=== PATIENT | male | born 1980 | race Caucasian/White ===

== ENCOUNTER 2016-07-27 18:23 | Emergency (ER) | payer BC, MEDICAID ==
[2016-07-27] MEDS ORDERED: HYDROcodone/ACETAMIN 5-325 MG* 1 TAB PO ONE (20:39)
[2016-07-27] MEDS ORDERED: Ibuprofen TAB* 600 MG PO ONE (20:39)
[2016-07-27] MEDS ORDERED: Penicillin VK TAB* 250 MG PO ONE (20:39)
--- NOTE | 2016-07-27 20:46 | UC ---
Dental HPI - HPI Summary HPI Summary: R lower dental pain starting a few days ago, steadily worsening since. Pt did not come in to be seen b/c he had an apt with an oral surgeon today (referred by dentist). Went to apt but was not seen by provider, so did not get any prescriptions. Was hoping for an antibiotic. - History of Current Complaint Chief Complaint: UCDentalProblem Stated Complaint: TOOTH PAIN Time Seen by Provider: 07/27/16 20:32 Hx Obtained From: Patient Onset/Duration: Gradual Onset, Lasting Days Aggravating: Chewing - Allergies/Home Medications Allergies/Adverse Reactions: Allergies Allergy/AdvReac Type Severity Reaction Status Date / Time No Known Allergies Allergy Verified 07/09/12 14:39 PMH/Surg Hx/FS Hx/Imm Hx Endocrine History Of: Denies: Diabetes, Thyroid Disease Cardiovascular History Of: Denies: Cardiac Disorders, Hypertension Respiratory History Of: Denies: COPD, Asthma GI/ History Of: Denies: Ulcer - Surgical History Surgical History: Yes Surgery Procedure, Year, and Place: 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 10 upper teeth removed 2006 - Family History Known Family History: Positive: Hypertension - Social History Lives: With Family Alcohol Use: Occasionally Substance Use Type: None Smoking Status (MU): Heavy Every Day Tobacco Smoker Length of Time of Smoking/Using Tobacco: 24 - Immunization History Most Recent Influenza Vaccination: denies Review of Systems Constitutional: Negative Skin: Negative Eyes: Negative ENT: Dental Pain Respiratory: Negative Cardiovascular: Negative Gastrointestinal: Negative Genitourinary: Negative Motor: Negative Neurovascular: Negative Musculoskeletal: Negative Neurological: Negative Psychological: Negative All Other Systems Reviewed And Are Negative: Yes Physical Exam Triage Information Reviewed: Yes Appearance: Obese Vital Signs: Initial Vital Signs Temp 98.7 F 07/27/16 19:44 Pulse 85 07/27/16 19:44 Resp 18 07/27/16 19:44 BP 175/105 07/27/16 19:44 Pulse Ox 100 07/27/16 19:44 Vital Signs Reviewed: Yes Eye Exam: Normal Eyes: Positive: Conjunctiva Clear Dental Exam: Other - upper dentures, most rear lower teeth gone or decayed Dental: Positive: Percussion Tenderness @ - #27, Gross Decay/Caries @ - multiple Neck exam: Normal Neck: Positive: Supple, No Lymphadenopathy Respiratory Exam: Normal Respiratory: Positive: Chest non-tender, Lungs clear, Normal breath sounds, No respiratory distress, No accessory muscle use Cardiovascular Exam: Normal Cardiovascular: Positive: RRR, No Murmur Musculoskeletal Exam: Normal Neurological Exam: Normal Neurological: Positive: Alert Psychological Exam: Normal Skin Exam: Normal Dental Complaint Course/Dx - Differential Dx/Diagnosis Provider Diagnoses: Toothache #27 Discharge - Discharge Plan Condition: Stable Disposition: HOME Prescriptions: Indomethacin CAP* [Indocin CAP*] 50 mg PO TID PRN #30 cap PRN Reason: Pain Penicillin VK TAB 500 MG(NF) [Penicillin VK 500 mg Tab(NF)] 500 mg PO QID #28 tab traMADol TAB* [Ultram*] 50 mg PO Q6HR PRN #15 tab MDD 4 PRN Reason: Pain Patient Education Materials: Toothache (ED) Referrals: Deshawn Enciso MD [Primary Care Provider] - 2 Weeks Additional Instructions: Please follow up with your oral surgeon as instructed. If you have severe symptoms, fever, or new swelling, please return here for care. See your primary care provider for your elevated blood pressure.
[2016-07-27 20:48] VITALS: BP 178/103
== END 2016-07-27 20:49 | disposition home or self-care (01) ==
LOC: UCEAST 18:23
DX: K08.89 Other specified disorders of teeth and supporting structures (principal); F17.210 Nicotine dependence, cigarettes, uncomplicated
CPT/HCPCS: 99213; A9270-GY; G0463

== ENCOUNTER 2016-08-02 16:12 | Emergency (ER) | payer BC, MEDICAID ==
[2016-08-02 18:39] VITALS: BP 167/108
--- NOTE | 2016-08-02 19:01 | UC ---
Dental HPI - HPI Summary HPI Summary: Seen here 07/27/16 for R lower tooth pain, rx PCN, indocin, and ultram #15. States pain is tolerable with indocin and ultram together, but just took the last one and does not yet have an appointment with the oral surgeon for extraction. Is waiting for a call. Was told they cannot make apt at PCP for dental pain. - History of Current Complaint Chief Complaint: UCGeneralIllness Stated Complaint: TOOTH PAIN Time Seen by Provider: 08/02/16 18:44 Hx Obtained From: Patient Onset/Duration: Gradual Onset, Lasting Weeks Severity: Moderate Aggravating: Chewing Alleviating: OTC Meds - Allergies/Home Medications Allergies/Adverse Reactions: Allergies Allergy/AdvReac Type Severity Reaction Status Date / Time No Known Allergies Allergy Verified 08/02/16 18:29 PMH/Surg Hx/FS Hx/Imm Hx Endocrine History Of: Denies: Diabetes, Thyroid Disease Cardiovascular History Of: Denies: Cardiac Disorders, Hypertension Respiratory History Of: Denies: COPD, Asthma GI/ History Of: Denies: Ulcer - Surgical History Surgical History: Yes Surgery Procedure, Year, and Place: 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 10 upper teeth removed 2006 - Family History Known Family History: Positive: Hypertension - Social History Lives: With Family Alcohol Use: Occasionally Substance Use Type: None Smoking Status (MU): Heavy Every Day Tobacco Smoker Amount Used/How Often: 1 pack/ day Length of Time of Smoking/Using Tobacco: 24 - Immunization History Most Recent Influenza Vaccination: denies Review of Systems Constitutional: Negative Skin: Negative Eyes: Negative ENT: Dental Pain Respiratory: Negative Cardiovascular: Negative Gastrointestinal: Negative Genitourinary: Negative Motor: Negative Neurovascular: Negative Musculoskeletal: Negative Neurological: Negative Psychological: Negative All Other Systems Reviewed And Are Negative: Yes Physical Exam Triage Information Reviewed: Yes Appearance: Well-Appearing, No Pain Distress, Well-Nourished Vital Signs: Initial Vital Signs Temp 98.4 F 08/02/16 18:30 Pulse 67 08/02/16 18:30 Resp 20 08/02/16 18:30 BP 167/108 08/02/16 18:30 Pulse Ox 100 08/02/16 18:30 Vital Signs Reviewed: Yes Eye Exam: Normal Eyes: Positive: Conjunctiva Clear ENT Exam: Normal ENT: Positive: Normal ENT inspection, Hearing grossly normal, Pharynx normal, TMs normal. Negative: Tonsillar swelling, Tonsillar exudate Dental Exam: Other - upper edentulous Dental: Positive: Percussion Tenderness @ - spaces where lower R molars would be , Gross Decay/Caries @ Neck exam: Normal Respiratory Exam: Normal Respiratory: Positive: Chest non-tender, Lungs clear, Normal breath sounds, No respiratory distress, No accessory muscle use Cardiovascular Exam: Normal Cardiovascular: Positive: RRR, No Murmur Musculoskeletal Exam: Normal Neurological Exam: Normal Neurological: Positive: Alert Psychological Exam: Normal Skin Exam: Normal Dental Complaint Course/Dx - Differential Dx/Diagnosis Provider Diagnoses: Dental pain R lower gums Discharge - Discharge Plan Condition: Stable Disposition: HOME Prescriptions: Lidocaine 2% VISCOUS* 3 ml TOPICAL Q2H #1 btl traMADol TAB* [Ultram*] 50 mg PO Q6HR PRN #15 tab MDD 4 PRN Reason: Pain Patient Education Materials: Toothache (ED) Referrals: Deshawn Enciso MD [Primary Care Provider] - 3 Days Additional Instructions: Please see your primary care provider about your blood pressure. You can also ask for some short-term support for pain medication; please do not come back to urgent care for pain pills.
== END 2016-08-02 19:05 | disposition home or self-care (01) ==
LOC: UCEAST 16:12
DX: K08.89 Other specified disorders of teeth and supporting structures (principal); F17.210 Nicotine dependence, cigarettes, uncomplicated
CPT/HCPCS: 99212; G0463

== ENCOUNTER 2017-11-12 18:48 | Emergency (ER) | payer BC, MEDICAID ==
[2017-11-12 18:57] VITALS: BP 153/103
--- NOTE | 2017-11-12 19:22 | UC ---
Shoulder Pain HPI - HPI Summary HPI Summary: The patient is a 37-year-old male with the onset of left shoulder pain about 1: 00 today. He is right-hand dominant. The pain is located in the anterior proximal humerus. There hurts to abduction the arm. He also has pain when he externally rotates the shoulder. There is no neck pain. He has no numbness or tingling. He denies any trauma. He has no chest pain or shortness of breath. - History of Current Complaint Chief Complaint: UCUpperExtremity Stated Complaint: L SHOULDER PAIN Time Seen by Provider: 11/12/17 18:59 Hx Obtained From: Patient Onset/Duration: Sudden Onset Timing: Constant Severity Initially: Severe Severity Currently: Severe Location Of Pain: Is Discrete @ Pain Intensity: 8 Pain Scale Used: 0-10 Numeric Character: Aching, Throbbing Aggravating Factor(s): Movement, External Rotation, Abduction Alleviating Factor(s): OTC Meds Associated Signs And Symptoms: Positive: Negative Related History: Dominant Hand Right - Allergies/Home Medications Allergies/Adverse Reactions: Allergies Allergy/AdvReac Type Severity Reaction Status Date / Time No Known Allergies Allergy Verified 11/12/17 18:57 Home Medications: Home Medications Ibuprofen TAB* [Motrin TAB* 800 MG] 1 tab PO DAILY 11/12/17 [History Confirmed 11/12/17] PMH/Surg Hx/FS Hx/Imm Hx Previously Healthy: Yes - Surgical History Surgical History: Yes Surgery Procedure, Year, and Place: tumor benign on right leg 2005. 10 upper teeth removed 2006 - Family History Known Family History: Positive: Cardiac Disease, Hypertension, Diabetes - Social History Alcohol Use: Occasionally Substance Use Type: None Smoking Status (MU): Heavy Every Day Tobacco Smoker Amount Used/How Often: 1 pack/ day Length of Time of Smoking/Using Tobacco: 24 - Immunization History Most Recent Influenza Vaccination: denies Review of Systems Constitutional: Negative Skin: Negative Eyes: Negative ENT: Negative Respiratory: Negative Cardiovascular: Negative Gastrointestinal: Negative Genitourinary: Negative Motor: Negative Neurovascular: Negative Musculoskeletal: Arthralgia Neurological: Negative Psychological: Negative Is Patient Immunocompromised?: No All Other Systems Reviewed And Are Negative: Yes Physical Exam Triage Information Reviewed: Yes Appearance: Well-Appearing, No Pain Distress, Well-Nourished Vital Signs: Initial Vital Signs Temp 98.1 F 11/12/17 18:54 Pulse 82 11/12/17 18:54 Resp 18 11/12/17 18:54 BP 153/103 11/12/17 18:54 Pulse Ox 99 11/12/17 18:54 Vital Signs Reviewed: Yes Eyes: Positive: Conjunctiva Clear ENT: Positive: Hearing grossly normal. Negative: Nasal congestion, Nasal drainage, Trismus, Muffled voice, Hoarse voice Neck: Positive: Supple, Nontender Respiratory: Positive: Lungs clear, Normal breath sounds, No respiratory distress, No accessory muscle use Cardiovascular: Positive: RRR, No Murmur Musculoskeletal: Positive: No Edema, ROM Limited @ - right shoulder-15 degrees abduction, limited ext rotation/tender bicipital groove Neurological: Positive: Alert Psychological Exam: Normal Skin Exam: Normal Diagnostics - Radiology No standard instances Xray Interpretation: Positive (See Comments) - FINDINGS SUGGESTIVE OF CALCIFIC TENDINITIS OR BURSITIS Radiology Interpretation Completed By: Radiologist Shoulder Course/Dx - Differential Dx/Diagnosis Provider Diagnoses: calcific tendonitis left shoulder. elevate BP without diagnosis of HTN Discharge - Sign-Out/Discharge Documenting (check all that apply): Patient Departure - Discharge Plan Condition: Stable Disposition: HOME Prescriptions: Ibuprofen TAB* [Motrin TAB*] 600 mg PO Q6H PRN #40 tab PRN Reason: Pain Patient Education Materials: Calcific Tendinitis (ED) Referrals: [facility] [Outside] - 1 Week (recheck in 1-2 weks if not better) Deshawn Enciso MD [Primary Care Provider] - 2 Weeks (BP recheck in 2-8 weeks) Additional Instructions: sling at work as needed for comfort heat Range of motion exercises as discussed massage yuri Berry Disposition and Condition Condition: STABLE Disposition: Home
--- NOTE | 2017-11-12 19:38 | RAD ---
INDICATION: Left shoulder injury. TECHNIQUE: 4 views of the left shoulder were obtained. FINDINGS: The bones are in normal alignment. No fracture is seen. There are calcific deposits adjacent to the superolateral aspect of the humeral head. Joint spaces appear maintained. IMPRESSION: FINDINGS SUGGESTIVE OF CALCIFIC TENDINITIS OR BURSITIS.
== END 2017-11-12 20:02 | disposition home or self-care (01) ==
LOC: UCEAST 18:48
DX: M75.32 Calcific tendinitis of left shoulder (principal); R03.0 Elevated blood-pressure reading, without diagnosis of hypertension; Z82.49 Family history of ischemic heart disease and other diseases of the circulatory system; Z83.3 Family history of diabetes mellitus; F17.210 Nicotine dependence, cigarettes, uncomplicated
CPT/HCPCS: 99213; G0463

== ENCOUNTER 2019-04-20 16:12 | Emergency (ER) | payer BC, MEDICAID ==
[2019-04-20] MEDS ORDERED: EPINEPHrine SYR 0.1MG/ML* SYRINGE ONE (16:14)
[2019-04-20] MEDS ORDERED: Naloxone* 0.4 MG/ML 10 ML VIAL ONE (16:18)
[2019-04-20] MEDS ORDERED: Sodium Bicarbonate 8.4%* 50 ML SYRINGE ONE (16:22)
--- NOTE | 2019-04-20 16:32 | ED ---
Cardiac Resuscitation - HPI Summary HPI Summary: Patient is a 38 y/o M presenting to [facility] via EMS for a chief complaint of cardiac arrest. Per EMS, patient was complaining of chest pain when he suddenly had a syncopal episode which was witnessed by his family. EMS was called at 15: 22 and on EMS arrival, patient was unconsciousness, was covered in vomit, and had a palpable pulse for 4 minutes before being in asystole. Patient was started on cardiac resuscitation and intubated. No PMHx, PSHx, or FMHx was noted by the family to EMS as the family was distraught and crying. - History of Current Complaint Stated Complaint: CARDIAC ARREST PER EMS Hx Obtained From: EMS Hx From Patient Unobtainable Due To: Extremis - Cardiac arrest Arrest Witnessed: Yes - Allergies/Home Medications Allergies/Adverse Reactions: Allergies Allergy/AdvReac Type Severity Reaction Status Date / Time No Known Allergies Allergy Verified 11/12/17 18:57 - Past Medical History Past Medical History: Unobtainable Due to Extremis - Family History Family History: Unobtainable Due to Extremis - Social History Social History: Unobtainable Due to Extremis - Review of Systems Review of Systems: Unobtainable Due to Extremis Physical Examination - Summary Physical Exam Summary: Vital Signs Reviewed: Yes CPR in progress with an ET tube placed. Vomitus around the airway and on the neck Eyes: Pupils are fixed and nonreactive to light ENT: ET tube in place with easy bagging by RT Neck: No crepitus Respiratory: Bilateral breath sounds present no chest wall crepitus Cardiovascular: Asystole on the monitor abd soft no obvious distention Musculoskeletal Exam: No evidence of trauma or swelling Neurological: Pupils fixed and nonreactive Skin: no rash, no ecchymosis - Physical Examination Triage Information Reviewed: Yes Completion Of Physical Exam Limited Due To: Extremis Resuscitation Termination Time: 16:27 Resuscitation: Unsuccessful Procedures - Sedation Patient Received Moderate/Deep Sedation with Procedure: No Cardiac Resus. Course/Dx - Course Course Of Treatment: Patient is here after having a witnessed cardiac arrest at home. Patient is complaining of pain her girlfriend in his chest and then collapsed. By the time EMS arrived, patient was covered in vomitus and found to be asystole on the monitor. CPR was initiated. Patient received 3 rounds of epinephrine prior to arrival. Patient was successfully intubated by the paramedics who saw the tube pass through the cords. Patient was easily bagged by RT and had bilateral breath sounds. Patient received multiple rounds of CPR , epinephrine, one amp of bicarbonate, 2 mg of Narcan here in the ED. Patient continued to be in asystole. Patient was pronounced at 1627. Patient was accepted by the medical assistant dermatology. - Diagnoses Provider Diagnoses: Cardiac arrest, Respiratory arrest During the Visit The Following Alert/Code Occurred: ABC Alert - ETA 5 MINUTES AT 16:03 CALLED ON EMS. EMS ARRIVAL AT 16:08. AT 16:16 COMPRESSIONS STARTED. AT 16:17 1 MG EPI GIVEN, NO PULSE. AT 16:18, 2 MG NARCAN GIVEN. AT 16:19, NO PULSE. AT 16:19, 1 MG EPI GIVEN. AT 19:20, NO PULSE. FAMILY ARRIVAL AT BEDSIDE AT 16:21. AT 16:22, BICARB GIVEN. AT 16:23, 1 MG EPI GIVEN, NO PULSE. AT 16:26, 1 MG EPI GIVEN. AT 16:27, 1 MG EPI GIVEN, NO PULSE. US AT BEDSIDE AT 16:27 SHOWS NO PULSE. TIME OF : 16:27. - Provider Notifications Discussed Care Of Patient With: Debra Burch - At 16:41, Kiersten accepts the autopsy. Time Discussed With Above Provider: 16:41 Discharge ED - Sign-Out/Discharge Documenting (check all that apply): Patient Departure - - Discharge Plan Condition: Disposition: Referrals: Deshawn Enciso MD [Primary Care Provider] - - Billing Disposition and Condition Condition: Disposition: - Attestation Statements Document Initiated by Stacia: Yes Documenting Scribe: Joya Montanez Provider For Whom Borisibelena is Documenting (Include Credential): Rito Muhammad MD Scribe Attestation: Joya Rocha, scribed for Rito Muhammad MD on 04/20/19 at 2047. Scribe Documentation Reviewed: Yes Provider Attestation: The documentation as recorded by the Joya pelaez accurately reflects the service I personally performed and the decisions made by me, Rito Muhammad MD Status of Scribe Document: Viewed
== END 2019-04-20 16:27 | disposition expired ==
LOC: ED 16:12
DX: I46.9 Cardiac arrest, cause unspecified (principal)
CPT/HCPCS: 99285; J0171; J2310

== ENCOUNTER → 2019-04-21 05:00 | Day surgery (SDC) | payer BC, MEDICAID | END | disposition home or self-care (01) | LOC: OR 05:00 | PROVIDERS: ATTEND Emergency Medicine | DX: Z52.89 Donor of other specified organs or tissues (principal) ==